=== PATIENT | female | born 1995 | race American Indian/Alaskan Native ===

== ENCOUNTER 2021-05-26 21:45 | Emergency (ER) | payer MEDICAID ==
[2021-05-26] MEDS ORDERED: Phenazopyridine 95 MG Tab PO ONE (23:17)
--- NOTE | 2021-05-26 23:17 | EDM.PDOC ---
ED HPI GENERAL MEDICAL PROBLEM - General Chief Complaint: Genitourinary Problem Stated Complaint: UTI, PER PT Time Seen by Provider: 05/26/21 22:50 Source of Information: Reports: Patient History Limitations: Reports: No Limitations - History of Present Illness INITIAL COMMENTS - FREE TEXT/NARRATIVE: Patient comes emergency department today from home with concerns of dysuria and urinary frequency that has been going on for the past 2 days. This patient in the last 3 months has had approximately 45 recurrent urinary tract infections. She has had 2 pelvic exams she has been tested for STIs as well. She is typically placed on Pyridium and Macrobid for her urinary tract infections. She has changed her body soap that she uses in her genital region to fragrance and dye free. Every time that she has sexual contact with a transient boyfriend she has recurrent urinary tract infections. He has never been tested or evaluated himself. She has no fever or chills. No nausea or vomiting. No abdominal pain. No black or tarry stools. No constipation. - Related Data Allergies Allergy/AdvReac Type Severity Reaction Status Date / Time Penicillins Allergy Rash Verified 05/26/21 21:59 Home Meds: Home Meds . [No Known Home Meds] 05/26/21 [History] Past Medical History - Past Health History Medical/Surgical History: Denies Medical/Surgical History Social & Family History - Tobacco Use Tobacco Use Status *Q: Current Every Day Tobacco User Years of Tobacco use: 9 Packs/Tins Daily: 0.5 Second Hand Smoke Exposure: Yes - Recreational Drug Use Recreational Drug Use: No ED ROS GENERAL - Review of Systems Review Of Systems: Comprehensive ROS is negative, except as noted in HPI. ED EXAM, RENAL/ - Physical Exam Exam: See Below Exam Limited By: No Limitations General Appearance: Alert, WD/WN, No Apparent Distress Respiratory/Chest: No Respiratory Distress, Lungs Clear Cardiovascular: Normal Peripheral Pulses, Regular Rate, Rhythm GI/Abdominal: Normal Bowel Sounds, Soft, Non-Tender (Female) Exam: Deferred (She had a pelvic exam approximately 1 week ago) Rectal (Female) Exam: Deferred Back Exam: Normal Inspection. No: CVA Tenderness (L), CVA Tenderness (R) Extremities: Normal Inspection, Normal Range of Motion, No Pedal Edema, Normal Capillary Refill Neurological: Alert, Oriented, Normal Cognition, No Motor/Sensory Deficits Psychiatric: Normal Affect, Normal Mood Skin Exam: Warm, Dry, Intact, Normal Color, No Rash Course - Vital Signs Last Recorded V/S: Last Vital Signs Temp 97.7 F 05/26/21 21:55 Pulse 85 05/26/21 21:55 Resp 18 05/26/21 21:55 BP 112/77 05/26/21 21:55 Pulse Ox 100 05/26/21 21:55 - Orders/Labs/Meds Orders: Active Orders 24 hr Category Date Time Status CULTURE URINE [RM] Stat Lab 05/26/21 22:05 Received Labs: Laboratory Tests 05/26/21 05/26/21 Range/Units 22:04 22:05 Urine Color Yellow (YELLOW) Urine Appearance Slightly cloudy (CLEAR) Urine pH 6.5 (5.0-9.0) Ur Specific [place] >= 1.030 (1.005-1.030) Urine Protein Trace H (NEGATIVE) Urine Glucose (UA) Negative (NEGATIVE) Urine Ketones Negative (NEGATIVE) Urine Occult Blood Trace-intact H (NEGATIVE) Urine Nitrite Negative (NEGATIVE) Urine Bilirubin Negative (NEGATIVE) Urine Urobilinogen 0.2 (0.2-1.0) mg/dL Ur Leukocyte Esterase Moderate H (NEGATIVE) Urine RBC Not seen (0-5) /HPF Urine WBC 75-100 H (0-5/HPF) /HPF Ur Epithelial Cells Moderate H (NOT SEEN) /HPF Urine Bacteria Many H (0-FEW/HPF) /HPF Urine HCG, Qual Negative Meds: Medications Discontinued Medications Generic Name Dose Route Start Last Admin Trade Name Freq PRN Reason Stop Dose Admin Cephalexin 1,000 mg 05/26/21 23:19 05/26/21 23:29 Cephalexin 500 Mg Cap PO 05/26/21 23:20 1,000 mg ONETIME ONE Administration Phenazopyridine HCl 190 mg 05/26/21 23:17 05/26/21 23:29 Phenazopyridine 95 Mg Tab PO 05/26/21 23:18 190 mg ONETIME ONE Administration - Re-Assessments/Exams Free Text/Narrative Re-Assessment/Exam: This patient clearly has a urinary tract infection. I am unconcerned for the presence of any pyelonephritis at this time. She has moderate leukocyte esterase you WBCs [id number] many bacteria. Urine culture is pending. This patient has been chronically treated primarily with Macrobid according to the patient herself. I wonder if she does not have some aspect of ascension of her infection that is not being covered by Macrobid. We will treat her with cefdinir for an extended course and I think it is best at this time to ensure that she has eradication after the course of this. If she does not have eradication of this continued antibiotic as well as urological evaluation is considered. She should consider having her transient boyfriend tested for STIs as well as other infectious process. She is comfortable with this plan and her questions are answered. Departure - Departure Time of Disposition: 23:16 Disposition: Home, Self-Care 01 Clinical Impression: Recurrent urinary tract infection - Discharge Information Instructions: Urinary Tract Infection, Adult, [id number] Forms: ED Department Discharge Additional Instructions: Make sure and drink plenty of fluids. Complete the hygiene that was discussed in the ED. No soaps for vaginal cleaning. If you do use them us PH balanced and no frangrance or dyes. Consider getting sexual partner tested as well. Cefdinir 1 capsule by mouth twice daily for the next 7 days. First dose in the ED and RX given to the patient #[id number]. Pyridium 1 tablet three times a day for the next 3 days. First dose in the ED and RX given to the patient. Return to the ED if new or worsening symptoms, especially if developing fever nausea vomiting. Recheck in the clinic after the course of anti-biotics to ensure eradication of the infection. If still problems consider a urology consult. Sepsis Event Note (ED) - Focused Exam Vital Signs: Vital Signs Temp Pulse Resp BP Pulse Ox 05/26/21 21:55 97.7 F 85 18 112/77 100 - My Orders Last 24 Hours: My Active Orders 05/26/21 22:05 CULTURE URINE [RM] Stat - Assessment/Plan Last 24 Hours: My Active Orders 05/26/21 22:05 CULTURE URINE [RM] Stat
[2021-05-26] MEDS ORDERED: Cephalexin 500 MG Cap PO ONE (23:19)
== END 2021-05-26 23:29 | disposition home or self-care (01) ==
LOC: DL.ED 21:45
DX: N39.0 Urinary tract infection, site not specified (principal); Z88.0 Allergy status to penicillin; Z72.0 Tobacco use
CPT/HCPCS: 81001; 81025; 87086; 87088; 87186; 99283; A9270-GY